=== PATIENT | male | born 1965 | race Caucasian/White ===

== ENCOUNTER 2016-04-13 20:38 | Inpatient (IN) | payer BC ==
[~2016-04-13] VITALS: Ht 180.3 cm; Wt 84.3 kg
[2016-04-13 21:35] LABS: HEMATOCRIT 48.7 % (38.0-50.0); MCHC 34.1 G/DL (30.0-36.0); MEAN PLAT.VOLUME 10.5 uM^3 (9.0-12.4); PLATELET COUNT 227 K/uL (156-360); RBC DIS.WIDTH-CV 12.5 % (11.8-14.6); RBC DIS.WIDTH-SD 42.3 % (39-53); RED BLOOD COUNT 5.18 M/uL (4.00-5.50); WHITE BLOOD COUNT 27.3 K/uL (4.1-10.2)
[2016-04-13 21:43] LABS: CHLORIDE 107 mEq/L (99-109); POTASSIUM 3.3 mEq/L (3.7-5.4); SODIUM 146 mEq/L (136-147)
[2016-04-13 21:46] LABS: GLUCOSE 239 mg/dL (70-99)
[2016-04-13 21:47] LABS: ANION GAP 28 MEQ/L (2-14)
[2016-04-13 21:48] LABS: INTER. NORMALIZED RATIO 1.1; PROTHROMBIN TIME 11.7 (9.2-11.2); PTT 31.5 (25-32); TOTAL BILIRUBIN 0.4 mg/dL (0.0-1.0)
[2016-04-13 21:49] LABS: ALKALINE PHOSPHATASE 76 IU/L (3-129); SERUM ETHYL ALCOHOL < 10 mg/dL
[2016-04-13 21:50] LABS: CARBOXY HGB 0 % (0-5); DEVICE NC; METHEMOGLOBIN 0 % (0-1.5); O2 FLOW 4 L/MIN; PCO2 60 mm Hg (35-45); PO2 188 mm Hg (80-100); SITE LR; TOTAL RESP RATE 24 resp/min; pH < 6.91 (7.35-7.45)
[2016-04-13 21:51] LABS: DIRECT BILIRUBIN 0.2 mg/dL (0.0-0.3); UREA NITROGEN (BUN) 15 mg/dL (9-23)
[2016-04-13 21:54] LABS: GFR ESTIMATE (CALCULATED) > 59 mL/min/
[2016-04-13 22:16] LABS: EOSINOPHIL (%) 0.3 % (0-5); EOSINOPHIL COUNT 0.1 K/uL (0-0.3); HEMATOLOGY COMMENT 1 SMEAR COMPATIBLE; IMMATURE GRANULOCYTE COUNT 2.6 K/uL; LYMPHOCYTE COUNT 2.9 K/uL (1.0-2.8); MONOCYTE (%) 6.2 % (3-12); MONOCYTE COUNT 1.7 K/uL (0-0.8); NEUTROPHIL (%) 81.7 % (45-76); NEUTROPHIL COUNT 22.3 K/uL (1.8-6.4); USER ID VLB
[2016-04-13 22:16] LABS: C-REACTIVE PROTEIN < 1.0 MG/L (0-10); HDL CHOLESTEROL 51 MG/DL (Desirable>=40); LDL CHOLESTEROL 99 mg/dL (Desirable<100); NON-HDL CHOLESTEROL 132 mg/dL (Desirable<160); SAMPLE HEMOLYSIS CHECK 0; SAMPLE ICTERIC CHECK 0; SAMPLE LIPEMIA CHECK 0; TOTAL CHOLESTEROL 183 mg/dL (Desirable<200); TRIGLYCERIDES 164 MG/DL (Normal: <150)
[2016-04-13 22:17] LABS: ERTH.SED.RATE 2 MM/HR (0-15)
[2016-04-13 22:33] LABS: BASE EXCESS -7.5 mEq/L (-3 to +3); BICARBONATE 21.1 mEq/L (22-26); CARBOXY HGB 1.7 % (0-5); COMMENTS - BLOOD GASES A+C+; DEVICE VENT; FI02 30 %; MECHANICAL RATE 22 resp/min; METHEMOGLOBIN 1.4 % (0-1.5); MODE AC; PO2 77 mm Hg (80-100); SITE RR; TIDAL VOLUME 500 ML; TOTAL RESP RATE 22 resp/min
[2016-04-13 22:34] LABS: PCO2 54 mm Hg (35-45); PEEP 5 CM/H20
[2016-04-13 22:35] LABS: TROP-I INTERPRETATION NEGATIVE; TROPONIN-I < 0.01 ng/mL (0.0-0.30)
[2016-04-13 22:54] LABS: AMPHETAMINE NEGATIVE (500 ng/mL); BARBITURATES NEGATIVE (200 ng/mL); BENZODIAZEPINES NEGATIVE (150 ng/mL); COCAINE NEGATIVE (150 ng/mL); INTERNAL CONTROLS VALID? YES; METHADONE NEGATIVE (200 ng/mL); METHAMPHETAMINE NEGATIVE (500 ng/mL); OPIATES (MORPHINE) NEGATIVE (100 ng/mL); OXYCODONE NEGATIVE (100 ng/mL); PHENCYCLIDINE NEGATIVE (25 ng/mL); PROPOXYPHENE NEGATIVE (300 ng/mL); THC CANNABINOIDS NEGATIVE (50 ng/mL); TRICYCLIC ANTIDEPRESSANTS NEGATIVE (300 ng/mL)
[2016-04-13 23:30] VITALS: BP 145/86
[2016-04-13 23:50] VITALS: BP 102/92
[2016-04-14] VITALS (24 sets, daily range): BP systolic 98–128; BP diastolic 60–94
[2016-04-14 00:28] LABS: ADD MIUA? NO; BILIRUBIN NEGATIVE; BLOOD NEGATIVE; COLOR YELLOW ((YELLOW)); GLUCOSE (STRIP) 100; KETONES NEGATIVE; LEUKOCYTES NEGATIVE; NITRITE NEGATIVE; PH, URINE 7.5 (5-8); PROTEIN (STRIP) NEGATIVE; SPECIFIC GRAVITY 1.023 (1.000-1.030); UCUL ADDED? NO; UROBILINOGEN 0.2 MG/DL (0.2-1.0)
[2016-04-14 00:52] LABS: METH RESISTANT S AUREUS PCR NEGATIVE (NEGATIVE)
[2016-04-14 00:53] LABS: PROBE CHECK PASS; SPECIMEN PROCESSING CONTROL PASS
[2016-04-14 01:24] LABS: POINT-OF-CARE METER ID UU13113731
[2016-04-14 05:33] LABS: BASE EXCESS 2.3 mEq/L (-3 to +3); BICARBONATE 23.6 mEq/L (22-26); COMMENTS - BLOOD GASES A+C+; DEVICE 840; FI02 30 %; MECHANICAL RATE 22 resp/min; METHEMOGLOBIN 1.7 % (0-1.5); MODE AC; PCO2 27 mm Hg (35-45); PEEP 5 CM/H20; PO2 118 mm Hg (80-100); SITE RR; TIDAL VOLUME 500 ML; TOTAL RESP RATE 24 resp/min; pH 7.55 (7.35-7.45)
[2016-04-14 06:31] LABS: ANION GAP 11 MEQ/L (2-14); CHLORIDE 110 MEQ/L (99-109); GFR ESTIMATE (CALCULATED) > 59 mL/min/; POTASSIUM 3.5 MEQ/L (3.7-5.4); SAMPLE HEMOLYSIS CHECK 0; SAMPLE ICTERIC CHECK 0; SAMPLE LIPEMIA CHECK 0; SODIUM 145 MEQ/L (136-147); UREA NITROGEN (BUN) 11 mg/dL (9-23)
[2016-04-14 06:39] LABS: EOSINOPHIL (%) 0.1 % (0-5); GLUCOSE 65 mg/dL (70-99); HEMATOCRIT 37.4 % (38.0-50.0); IMMATURE GRANULOCYTE (%) 0.3 % (0.0-0.7); LYMPHOCYTE COUNT 1.4 K/uL (1.0-2.8); MCH 31.7 PG (29.0-34.0); MCHC 35.3 G/DL (30.0-36.0); MCV 89.9 FL (86-99); MEAN PLAT.VOLUME 10.7 uM^3 (9.0-12.4); MONOCYTE (%) 6.7 % (3-12); NEUTROPHIL (%) 83.3 % (45-76); NEUTROPHIL COUNT 12.1 K/uL (1.8-6.4); PLATELET COUNT 180 K/uL (156-360); RBC DIS.WIDTH-CV 12.6 % (11.8-14.6); RBC DIS.WIDTH-SD 40.8 % (39-53); RED BLOOD COUNT 4.16 M/uL (4.00-5.50); WHITE BLOOD COUNT 14.5 K/uL (4.1-10.2)
[2016-04-14 07:04] LABS: Estimated Average Glucose 103 mg/dL (70-123); HEMOGLOBIN A1c (GLYCOHEMOGLOB) 5.2 % HGB (Below 5.7)
[2016-04-14 07:11] LABS: BASE EXCESS 1.7 mEq/L (-3 to +3); BICARBONATE 26.6 mEq/L (22-26); METHEMOGLOBIN 1.5 % (0-1.5); PO2 117 mm Hg (80-100)
[2016-04-14 07:12] LABS: COMMENTS - BLOOD GASES NAC+; DEVICE 840; FI02 30 %; MECHANICAL RATE 12 resp/min; MODE A/C; PCO2 42 mm Hg (35-45); PEEP 5 CM/H20; SITE RR; TIDAL VOLUME 500 ML; TOTAL RESP RATE 14 resp/min; pH 7.41 (7.35-7.45)
[2016-04-14 12:24] LABS: POINT-OF-CARE METER ID UU13113731
[2016-04-14 17:07] LABS: POINT-OF-CARE METER ID UU13113748
[2016-04-14 17:27] LABS: ANION GAP 7 MEQ/L (2-14); CHLORIDE 112 MEQ/L (99-109); GFR ESTIMATE (CALCULATED) > 59 mL/min/; POTASSIUM 3.8 MEQ/L (3.7-5.4); SAMPLE HEMOLYSIS CHECK 0; SAMPLE ICTERIC CHECK 0; SAMPLE LIPEMIA CHECK 0; SODIUM 144 MEQ/L (136-147); UREA NITROGEN (BUN) 9 mg/dL (9-23)
[2016-04-14 17:28] LABS: GLUCOSE 109 mg/dL (70-99)
[2016-04-15] VITALS (10 sets, daily range): BP systolic 101–150; BP diastolic 61–85
[2016-04-15 06:19] LABS: HEMATOCRIT 37.4 % (38.0-50.0); MCH 30.9 PG (29.0-34.0); MCHC 33.4 G/DL (30.0-36.0); MCV 92.3 FL (86-99); MEAN PLAT.VOLUME 10.9 uM^3 (9.0-12.4); PLATELET COUNT 135 K/uL (156-360); RBC DIS.WIDTH-CV 12.8 % (11.8-14.6); RBC DIS.WIDTH-SD 43.4 % (39-53); RED BLOOD COUNT 4.05 M/uL (4.00-5.50)
[2016-04-15 06:20] LABS: WHITE BLOOD COUNT 9.2 K/uL (4.1-10.2)
[2016-04-15 06:48] LABS: ANION GAP 12 MEQ/L (2-14); CHLORIDE 107 MEQ/L (99-109); GFR ESTIMATE (CALCULATED) > 59 mL/min/; GLUCOSE 129 mg/dL (70-99); MAGNESIUM 2.1 mg/dl (1.3-2.7); POTASSIUM 4.2 MEQ/L (3.7-5.4); SAMPLE HEMOLYSIS CHECK 0; SAMPLE ICTERIC CHECK 0; SAMPLE LIPEMIA CHECK 0; SODIUM 144 MEQ/L (136-147); UREA NITROGEN (BUN) 11 mg/dL (9-23)
[2016-04-15] MEDS ORDERED: KEPPRA500 MG PO (11:56)
[2016-04-15] MEDS ORDERED: DECADRON4 MG PO (11:56)
== END 2016-04-15 16:00 | disposition home or self-care (01) | DRG 54 ==
LOC: EME 20:38 → EDBD 20:38 → 4WEST 22:22 → EDOF 22:22 → 4WEST 23:18
PROVIDERS: Emergency Medicine; Surgery
PROC: 5A1935Z Respiratory Ventilation, Less than 24 Consecutive Hours (ICD-10-PCS; principal; 2016-04-13)
PROC: 0BH17EZ Insertion of Endotracheal Airway into Trachea, Via Natural or Artificial Opening (ICD-10-PCS; principal; 2016-04-13)
DX: C71.2 Malignant neoplasm of temporal lobe (principal); G93.40 Encephalopathy, unspecified; E87.2 Acidosis; R56.9 Unspecified convulsions; E87.6 Hypokalemia; R73.9 Hyperglycemia, unspecified
CPT/HCPCS: 36600; 70450; 70544; 70553; 71010; 71260; 74177; 80048; 80048 91; 80061; 80076; 81003; 82140; 82570; 82803; 82948; 83036; 83605; 83735; 83935; 84100; 84300; 84484; 85025; 85027; 85610; 85651; 85730; 86140; 87040; 87070; 87205; 87641; 93005; 94002; 99281; 99285; G0480; J0133; J0330; J0696; J1100; J1815; J1953; J2060; J2543; J2704; J3370; J3480; J7030; J7050; J7070; S0030